=== PATIENT | male | born 1990 ===

== ENCOUNTER 2021-04-19 18:39 | Emergency (ER) | payer OTHER ==
[~2021-04-19] VITALS: Ht 188 cm; Wt 83.9 kg
--- NOTE | 2021-04-19 18:47 | NUR ---
MD@bedside, medical screening exam in progress
[2021-04-19] MEDS ORDERED: LIDO30AD10 TD (18:55)
[2021-04-19] MEDS ORDERED: IBUP-1955 PO (18:55)
[2021-04-19] MEDS ORDERED: BACL10TA PO (18:55)
[2021-04-19] MEDS ORDERED: LIDOCAINE 5% PATCH TD ONE (19:00)
[2021-04-19] MEDS ORDERED: KETOROLAC TROMETHAMINE 30 MG INJ IM ONE (19:00)
[2021-04-19] MEDS ORDERED: ACETAMINOPHEN 325 MG TABLET PO ONE (19:00)
--- NOTE | 2021-04-19 19:00 | NUR ---
[employer] officers x2 @bedside, SBAR to PAULINE Herzog accordingly.
[2021-04-19] MEDS ORDERED: KETOROLAC TROMETHAMINE 30 MG INJ ONE (19:03)
[2021-04-19] MEDS ORDERED: ACETAMINOPHEN 325 MG TABLET ONE (19:03)
--- NOTE | 2021-04-19 19:10 | NUR ---
Patient discharged to home in stable condition. Written and verbal after care instructions given. Patient verbalizes understanding of instructions. Stressed follow up or return to ER for worsening s/s. Patient out of ER with steady gait, no acute signs of distress, all belongings taken, VSS.
[2021-04-19 19:13] VITALS: BP 149/98
== END 2021-04-19 19:13 | disposition home or self-care (01) ==
LOC: ER 18:44
DX: S16.1XXA Strain of muscle, fascia and tendon at neck level, initial encounter (principal); V49.40XA Driver injured in collision with unspecified motor vehicles in traffic accident, initial encounter; Y92.410 Unspecified street and highway as the place of occurrence of the external cause; S09.90XA Unspecified injury of head, initial encounter; R03.0 Elevated blood-pressure reading, without diagnosis of hypertension
CPT/HCPCS: 96372; 99283; J1885; A4663